=== PATIENT | female | born 1965 | race Caucasian/White ===

== ENCOUNTER 2023-07-28 05:34 | Emergency (ER) | payer OTHER, SELFPAY ==
[2023-07-28] VITALS (7 sets, daily range): BP systolic 115–142; BP diastolic 72–95; BMI 35.2
[2023-07-28 06:19] LABS: % Basophils 0.6 % (0-2); % Eosinophils 5.2 % (0-6); % Immature Granulocytes 0.4 % (0-0.5); % Lymphocytes 25.5 % (20.5-51.1); % Monocytes 7.1 % (1.7-9.3); % Neutrophils 61.2 % (42.2-75.2); Absolute Basophils 0.1 10^3/uL (0-0.2); Absolute Eosinophils 0.6 10^3/uL (0-0.7); Absolute Lymphocytes 2.8 10^3/uL (1.2-3.4); Absolute Monocytes 0.8 10^3/uL (0.1-0.6); Absolute Neutrophils 6.7 10^3/uL (1.4-6.5); Hematocrit 40.5 % (37.0-47.0); Hemoglobin 13.8 g/dL (12.0-16.0); Mean Corp Hgb Conc. 34.1 g/dL (33.0-37.0); Mean Corpuscular Hgb 30.9 pg (27.0-31.0); Mean Corpuscular Volume 90.6 fL (81.0-99.0); Mean Platelet Volume 9.9 fL (7.4-10.4); Nucleated Red Blood Cells % 0 %; Platelet Count 376 10^3/uL (130-400); Red Blood Cell Count 4.47 10^6/uL (4.20-5.40); Red Cell Dist. Width 14.6 % (11.5-14.5); White Blood Cell Count 10.9 10^3/uL (4.8-10.8)
[2023-07-28 06:26] LABS: ALT (SGPT) 46 U/L (0-35); AST (SGOT) 29 U/L (14-36); Albumin 4.3 g/dl (3.5-5.0); Alkaline Phosphatase 58 U/L (38-126); Blood Urea Nitrogen 15 mg/dl (7-17); Calcium 9.3 mg/dl (8.4-10.2); Carbon Dioxide 24 mmol/L (22-30); Chloride 107 mmol/L (98-107); Estimated Creatinine Clearance 112 ml/min; Glucose 111 mg/dl (70-99); Potassium 3.8 mmol/L (3.5-5.1); Sodium 139 mmol/L (135-145); Total Bilirubin 0.6 mg/dl (0.2-1.3); Total Protein 7.1 g/dl (6.3-8.2); eGFR > 60.00
[2023-07-28] MEDS: MAALOX 50 PO (06:35)
[2023-07-28 06:36] LABS: Troponin I < 0.012 ng/ml
[2023-07-28] MEDS: PROTONIX IV 40 MG IV (06:36)
--- NOTE | 2023-07-28 06:38 | ED.GENMED ---
History of Present Illness
General
Chief Complaint: Chest Pain
Source: patient
Exam Limitations: none
Time Seen by Provider: 07/28/23 06:11
Nursing documentation reviewed up to this point in time: agreed with
Travel History
Have you had any contact with someone who has COVID-19?: No
Do you have any symptoms of coronavirus? Fever > 100 degrees, chills, cough, shortness of breath, sore throat, loss of taste or smell, muscle aches, or headache?: No
History of Present Illness
History of Present Illness:
57-year-old female with no chronic medical history who presents to the emergency department for evaluation of chest pain. Patient reports onset of symptoms around 4:30 AM woke her from sleep. She reports that they have been intermittent since that
time coming and going every 2 to 3 minutes. She reports a sensation of tightness right in the center of her chest that does not radiate. No clear triggering or relieving factors noted�took some Mylanta which did not help. She reports associated
nausea and some dry heaving this morning. She denies any shortness of breath. She denies any recent illness�no coughing, fevers, chills recently. She denies any abdominal pain. She denies similar symptoms in the past. She denies any known
cardiac history. She is a smoker. Denies drug or alcohol use.
Review of Systems
Review of Systems
All Other Systems: ROS reviewed and negative except as documented in HPI and ROS
Constitutional: Denies fever or chills
EENT: Denies sore throat or runny nose
Respiratory: Denies cough or trouble breathing
Cardiac: Reports chest pain; Denies diaphoresis, palpitations or syncope
ABD/GI: Reports nausea; Denies abdominal pain, vomiting or diarrhea
: Denies flank pain
Musculoskeletal: Denies neck pain or back pain
Neurological: Denies dizzy, headache, weakness or numbness
Phy Exam
Physical Exam
Physical Exam:
General: Awake, alert, oriented x3; no acute distress
Head: Normocephalic, atraumatic
Eyes: Conjunctiva normal, EOMI
Throat: Airway intact, handling secretions
Neck: Trachea midline, supple without meningismus
Lungs: Clear to auscultation bilaterally, no wheezing, rales, rhonchi
Heart: Regular rate and rhythm, no murmurs, gallops, or rubs
Abd: Soft, non distended, nontender
Neuro: Cranial nerves grossly intact, speech fluid
Skin: no rash
Extremities: No edema in extremities, equal pulses in all extremities
Scores
Heart Failure Risk
Heart Failure Risk Score: Not Applicable
Heart Score for Chest Pain Patients
STEMI patient?: No
History: Slightly or Non-Suspicious
ECG: Nonspecific Repolarization
Age: >45 - <65 years
Risk Factors: 1 or 2 Risk Factors
Troponin: </= Normal Limit
Heart Score for Chest Pain Patients: 3
Heart Score Risk: 2.5% MACE over next 6 weeks
Withdrawal Assessment of Alcohol
Withdrawal Assessment Completed?: Not applicable
Course
Orders/Labs/Results
Orders:
Orders
07/28/23 05:47
Electrocardiogram (*1) Urgent
Reason for Study: Chest Pain
EKG- Treatment ONCE
07/28/23 05:50
Cardiac Monitoring- Treatment ONCE
IV Insert/Care/Rem.- Treatment PRN
O2 Therapy [RESP] Urgent
Titrate/Wean O2 to maintain O2 sat greater than (%): 90
Special Instructions: Maintain sats >/=90%
Pulse Ox/spot Check [RESP] Urgent
Quantity: 1
Special Instructions: ON ROOM AIR
07/28/23 05:53
CR Chest - 2 Views Urgent
Comment:
Reason For Exam: cp/sob
07/28/23 05:55
Complete Blood Count/With Diff Urgent
Comprehensive Metabolic Panel Urgent
Troponin I Urgent
07/28/23 06:23
Mag Hydrox/Al Hydrox/Simeth [Maalox] 30 ml Phenobarb/Hyoscy/Atropine/Scop [] 10 ml Viscous Lidocaine 2% [Xylocaine Viscous Cup] 10 ml PO NOW
Pantoprazole [Protonix IV] 40 mg IV NOW STA
07/28/23 06:34
Mag Hydrox/Al Hydrox/Simeth [Maalox] 30 ml .ROUTE .STK-MED ONE
Phenobarb/Hyoscy/Atropine/Scop [] 10 ml .ROUTE .STK-MED ONE
Viscous Lidocaine 2% [Xylocaine Viscous Cup] 15 ml .ROUTE .STK-MED ONE
07/28/23 06:42
D-Dimer Urgent
07/28/23 09:41
Troponin I Urgent
Abnormal Lab Results
07/28/23
05:55
WBC 10.9 H 10^3/uL
(4.8-10.8)
RDW 14.6 H %
(11.5-14.5)
Absolute Neuts (auto) 6.7 H 10^3/uL
(1.4-6.5)
Absolute Monos (auto) 0.8 H 10^3/uL
(0.1-0.6)
Glucose 111 H mg/dl
(70-99)
ALT 46 H U/L
(0-35)
07/28/23 05:55
07/28/23 05:55
Vital Signs
Initial and Last Documented VS:
Initial Vital Signs
Temp Pulse Resp BP Pulse Ox
36.6 C 79 20 142/95 100
07/28/23 05:39 07/28/23 05:39 07/28/23 05:39 07/28/23 05:39 07/28/23 05:39
Last Documented Vital Signs
Temp Pulse Resp BP Pulse Ox
36.6 C 66 21 136/78 97
07/28/23 05:39 07/28/23 07:15 07/28/23 07:15 07/28/23 07:14 07/28/23 07:15
MDM/Problems Addressed
Differential Diagnosis Includes:
GERD/esophageal spasms, costochondritis, pericarditis, ACS, PE, pneumothorax, pneumonia, anxiety
MDM/Problems Addressed:
57-year-old female presents for evaluation of intermittent but quite frequent atypical chest pains this morning for the past 2 hours or so. Associated with nausea and some dry heaves. Did not improve with Mylanta. Vital signs normal. Exam as
above. EKG shows left bundle branch block no prior available for comparison. Plan to place an IV check labs including a CBC and a CMP, serial troponins. Will check a D-dimer. Will check a chest x-ray. Will treat with green grabber and Protonix.
Monitor closely reassess after the above.
Labs reviewed: CBC shows marginal leukocytosis 10.9 otherwise unremarkable, CMP within acceptable range. Troponin undetectable x 1, repeat in 3 hours. Awaiting rest of workup.
Clinical reassessment patient feeling improvement after GI cocktail states she is feeling a lot better. Her D-dimer came back was negative. Chest x-ray reviewed by me shows no acute disease. Will continue to monitor while awaiting repeat troponin.
Repeat troponin negative. Patient feels much better here suspect this is likely GERD or esophagitis or even esophageal spasms. We did discuss her left bundle branch block she says that she knew about this she saw her medical office technician in the past and
had echocardiogram and stress test and was told that it was 'her normal.' We also discussed the top normal heart size on x-ray again this was known she says. Certainly she has nothing to suggest heart failure at this point. At this point she is
stable for discharge. She will follow-up with her primary doctor also provide GI referral. Will start her on a PPI with Maalox as needed. She feels very happy with this plan. We spoke about return precautions all questions answered.
Chronic conditions affecting care:
Smoker�higher risk for heart disease
*Radiology
Radiology exam reviewed: preliminary read by ED provider and radiology read reviewed
*Pulse Oximetry
Patient hypoxic: no
*EKG
Interpreted by ED Provider?: Yes
Heart Rate: 77
Rate: normal
Rhythm: sinus
[place]: left axis deviation
Interval: normal interval
QRS Pattern: left bundle branch block and left vent hypertrophy
Ischemia: non-specific ST changes
*Critical Care Note
Total Time (30-74mins, 75-104mins- exclusive of procedures): Not Applicable
Data Reviewed
Source: patient
ED Attending Note
-
Portions of this chart may have been created with voice recognition software.� Occasional wrong word or��sound alike� substitutions may have occurred due to the inherent limitations of voice recognition software.
Discharge Plan
Departure
Patient Disposition: Home (Routine Discharge)
Date of Disposition: 07/28/23
Time of Disposition: 10:37
Patient with high blood pressure during this ER visit?: Yes
Discharge Problem:
Chest pain
Instructions: Chest Pain PCP Follow Up
Prescriptions:
New
pantoprazole 40 mg tablet,delayed release (DR/EC)
40 mg PO DAILY Qty: 30 0RF
alum-mag hydroxide-simeth [Maalox Maximum Strength] 400-400-40 mg/5 mL suspension
10 ml PO TID PRN (Reason: indigestion) Qty: 3000 0RF
Referrals:
Randee De Jesus MD [Family Provider] - Follow up in 5-7 days
Xi Green DO [Active] - As needed (GI physician)
Activity Restrictions/Additional Instructions:
Thank you for visiting the Emergency Department at [facility] [place].
1. Please schedule a follow up appointment as directed. Call first thing tomorrow morning to make an appointment.
2. If indicated, please take your medications as instructed and indicated on discharge paperwork.
3. If any of your symptoms do not improve, or persist, or become more severe within 6-12 hours, please return to the emergency department for further care.
4. Please return to the emergency department if you develop a headache, neck pain/stiffness, fever greater than 100.4F, chest pain, shortness of breath, persistent nausea, vomiting, slurred speech, difficulty walking, numbness/tingling, weakness,
signs of infection or any other symptoms that are worrisome to you.
Please call [phone] if you have any questions.
Interventions
Interventions:
*Risk Screen - Suicide Last Done: 07/28/23 05:39
*General Assessment Last Done: 07/28/23 05:52
*Neglect/Abuse Screening Last Done: 07/28/23 05:39
ED- Fall Risk Assessment Last Done: 07/28/23 05:50
*ED COVID-19 Vaccine History Last Done: 07/28/23 05:39
ED- Cardiac Assessment Last Done: 07/28/23 05:50
[2023-07-28 07:01] LABS: D-Dimer 0.36 ug/mlFEU (0.00-0.50)
[2023-07-28 10:25] LABS: Troponin I < 0.012 ng/ml
== END 2023-07-28 10:56 | disposition home or self-care (01) ==
LOC: EMR 05:34
PROVIDERS: EMERGENCY PHYSICIAN Emergency Medicine; FAMILY PHYSICIAN Family Medicine
DX: R07.9 Chest pain, unspecified (principal); R11.0 Nausea; R03.0 Elevated blood-pressure reading, without diagnosis of hypertension; F17.200 Nicotine dependence, unspecified, uncomplicated
CPT/HCPCS: 99285; 96374; 71046; 80053; 84484; 85025; 85379; 93005